=== PATIENT | female | born 1985 | race American Indian/Alaskan Native ===

== ENCOUNTER 2021-05-19 12:09 | Emergency (ER) | payer OTHER ==
[2021-05-19] MEDS ORDERED: cloNIDine 0.1 MG TAB PO ONE (12:38)
--- NOTE | 2021-05-19 12:44 | Emergency Department Report ---
ED Chest Pain HPI - General Chief Complaint: Chest Pain Stated Complaint: CHEST PAIN HIGH BP Time Seen by Provider: 05/19/21 12:29 Source: patient Mode of arrival: Ambulatory Limitations: No Limitations - History of Present Illness Initial Comments: 35-year-old -[place] female presents to the emergency department with complaint of a 2-day history of some midsternal chest discomfort that she describes as a tightness or pressure, as well as some recent labile but elevated blood pressure. Patient denies any past medical history of anything. She recently was seen at [facility] 4 days ago, but says that she was not actually seen by a provider due to the long wait. She did show me the blood work that was obtained and it showed some anemia with hemoglobin of 9.7, a normal-appearing CMP and the patient is not . She denies any tobacco use. She follows with [facility] for primary care. The patient's mother had an CA in her 40s. No recent travel or sick contacts at home. - Related Data Previous Rx's Medication Instructions Recorded Last Taken Type amLODIPine 5 mg PO DAILY #30 tab 05/19/21 Unknown Rx Allergies Allergy/AdvReac Type Severity Reaction Status Date / Time No Known Allergies Allergy Unverified 05/19/21 12:15 Heart Score - HEART Score History: Slightly suspicious EKG: Normal Age: < 45 Risk factors: 1-2 risk factors Troponin: < normal limit HEART Score: 1 - EKG Read Time Time EKG Completed: 12:23 EKG Read Time: 12:25 - Critical Actions Critical Actions: 0-3 pts:0.9-1.7%risk of adverse cardiac event.Candidate for discharge ED Review of Systems ROS: Stated complaint: CHEST PAIN HIGH BP Other details as noted in HPI Comment: All other systems reviewed and negative Constitutional: denies: chills, fever Eyes: denies: eye pain, vision change ENT: denies: ear pain, throat pain Respiratory: denies: cough, shortness of breath Cardiovascular: chest pain. denies: palpitations Gastrointestinal: denies: abdominal pain, vomiting Genitourinary: denies: dysuria, discharge Musculoskeletal: denies: back pain, joint swelling Skin: denies: rash, lesions Neurological: denies: headache, weakness ED Past Medical Hx - Past Medical History Previous Medical History?: No - Surgical History Past Surgical History?: Yes Additional Surgical History: , TL AND REVERSAL - Medications Home Medications: Home Medications Medication Instructions Recorded Confirmed Last Taken Type amLODIPine 5 mg PO DAILY #30 tab 05/19/21 Unknown Rx ED Physical Exam - General Limitations: No Limitations - Other Other exam information: GENERAL: The patient is well-developed well-nourished. HENT: Normocephalic. Atraumatic. Patient has moist mucous membranes. EYES: Extraocular motions are intact. NECK: Supple. Trachea is midline. CHEST/LUNGS: Clear to auscultation. There is no respiratory distress noted. HEART/CARDIOVASCULAR: Regular. There is no tachycardia. There is no murmur. ABDOMEN: Abdomen is soft, nontender. Patient has normal bowel sounds. SKIN: Skin is warm and dry. NEURO: The patient is awake, alert, and oriented. The patient is cooperative. The patient has no focal neurologic deficits. Normal speech. MUSCULOSKELETAL: There is no tenderness or deformity. There is no limitation range of motion. ED Course Vital Signs 05/19/21 05/19/21 12:17 14:39 Temperature 97.5 F L Pulse Rate 67 Respiratory 18 Rate Blood Pressure 159/105 Blood Pressure 134/92 [Left] O2 Sat by Pulse 99 Oximetry DIANNE score - Dianne Score Age > 65: (0) No Aspirin use within the Past 7 Days: (0) No 3 or more CAD Risk Factors: (0) No 2 or more Angina events in past 24 hrs: (1) Yes Known CAD with more than 50% Stenosis: (0) No Elevated Cardiac Markers: (0) No ST Deviation Greater than 0.5mm: (0) No DIANNE Score: 1 ED Medical Decision Making - Lab Data Result diagrams: 05/19/21 12:53 05/19/21 12:53 Lab Results 05/19/21 05/19/21 Range/Units 12:53 12:53 WBC 5.8 (4.5-11.0) K/mm3 RBC 3.66 (3.65-5.03) M/mm3 Hgb 10.2 (10.1-14.3) gm/dl Hct 30.3 (30.3-42.9) % MCV 83 (79-97) fl MCH 28 (28-32) pg MCHC 34 (30-34) % RDW 14.0 (13.2-15.2) % Plt Count 388 (140-440) K/mm3 Sodium 140 (137-145) mmol/L Potassium 3.8 (3.6-5.0) mmol/L Chloride 103.2 (98-107) mmol/L Carbon Dioxide 29 (22-30) mmol/L Anion Gap 12 mmol/L BUN 10 (7-17) mg/dL Creatinine 0.5 L (0.6-1.2) mg/dL Estimated GFR > 60 ml/min BUN/Creatinine Ratio 20 % Glucose 101 H (65-100) mg/dL Calcium 9.3 (8.4-10.2) mg/dL Troponin T < 0.010 (0.00-0.029) ng/mL - EKG Data -: EKG Interpreted by Me EKG shows normal: sinus rhythm, axis, intervals, QRS complexes, ST-T waves Rate: normal - EKG Data When compared to previous EKG there are: previous EKG unavailable Interpretation: normal EKG - Radiology Data Radiology results: image reviewed interpreted by me: Chest x-ray does not show any acute process. There are no pleural effusions, obvious pneumonia and there is no pneumothorax. No widened mediastinum. - Medical Decision Making This patient presents to the emergency department with a complaint of some midsternal chest discomfort, and the complaint of elevated blood pressure without the previous diagnosis of hypertension. EKG does not have any morphology consistent with ST elevation myocardial infarction or any arrhythmia. Chest x-ray does not show any pneumonia, pleural effusions, pneumothorax, widened mediastinum, or any other acute process. Labs have been mostly remarkable including CBC, metabolic panel and a negative troponin. Patient was given a dose of Catapres. Upon reevaluation the patient's blood pressure has come down to a more reasonable level. She also says that her chest pain has currently resolved. She is low on the heart and DIANNE score. She is low on the Wells score criteria and negative on the pulmonary embolism rule out criteria. For all these reasons patient appears safe for discharge home at this time. Her contact information has been sent over to the [facility], and someone from their office should be contacting her shortly for close outpatient follow-up as part of our hospitals low risk chest pain protocol. She has been started on Norvasc/amlodipine. We discussed staying away from f oods that are high in salt and caffeinated products, and keeping a blood pressure log. She will return to the emergency department with any worsening of her symptoms or with any acute distress. Critical Care Time: No Critical care attestation.: If time is entered above; I have spent that time in minutes in the direct care of this critically ill patient, excluding procedure time. ED Disposition Clinical Impression: Hypertension Qualifiers: Hypertension type: primary hypertension Qualified Code(s): I10 - Essential (primary) hypertension Chest pain Qualifiers: Chest pain type: unspecified Qualified Code(s): R07.9 - Chest pain, unspecified Disposition: HOME / SELF CARE / HOMELESS Is pt being admited?: No Condition: Stable Instructions: Nonspecific Chest Pain, Adult, Hypertension, Adult, Hypertension (ED) Additional Instructions: Please follow-up with your primary care physician in the next few days. Try to stay away from foods that are high in salt and caffeinated products. Keep a blood pressure log. I am starting you on a blood pressure medication called amlodipine/Norvasc. This medication is taken once per day, usually in the morning. I have sent your contact information over to the [facility], and someone from their office should be contacting you shortly. Just in case, I am giving you a referral for one of their hand blocker, Dr. Hennessy. Return to the emergency department with any worsening of your symptoms, new or concerning symptoms not addressed during this current emergency department visi t, or with any acute distress. Prescriptions: amLODIPine 5 mg PO DAILY #30 tab [facility]Other[facility] - 2-3 Days OZ HENNESSY MD [Staff Physician] - 2-3 Days Time of Disposition: 14:47
--- NOTE | 2021-05-19 13:14 | XRay Report ---
CHEST 2 VIEWS INDICATION / CLINICAL INFORMATION: Chest pain. COMPARISON: None available. FINDINGS: SUPPORT DEVICES: None. HEART / MEDIASTINUM: No significant abnormality. LUNGS / PLEURA: No significant pulmonary or pleural abnormality. No pneumothorax. ADDITIONAL FINDINGS: No significant additional findings. IMPRESSION: 1. No acute findings. Signer Name: Lawrence Abel MD Signed: 05/19/2021 1:09 PM Workstation Name: [id number]
[2021-05-19 13:42] LABS: Blood Urea Nitrogen 10 mg/dL (7-17); Calcium 9.3 mg/dL (8.4-10.2); Hemolysis Index 2
[2021-05-19 13:46] LABS: Hematocrit 30.3 % (30.3-42.9); Hemoglobin 10.2 gm/dl (10.1-14.3); Mean Corpuscular HGB Conc 34 % (30-34); Mean Corpuscular Volume 83 fl (79-97); Platelet Count 388 K/mm3 (140-440); Red Blood Count 3.66 M/mm3 (3.65-5.03)
[2021-05-19 14:15] LABS: BUN/Creatinine Ratio 20
[2021-05-19 15:24] VITALS: BP 131/83
[2021-05-19 17:40] LABS: Total Cells Counted 100
[2021-05-19 17:41] LABS: Band Neutrophils # (Manual) 0.1 K/mm3; Platelet Estimate Consistent w Auto
--- NOTE | 2021-05-20 09:10 | Electrocardiograph Report ---
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
== END 2021-05-19 15:24 | disposition home or self-care (01) ==
LOC: ED 12:09
DX: I10 Essential (primary) hypertension (principal); R07.9 Chest pain, unspecified
CPT/HCPCS: 36415; 71046; 80048; 84484; 85007; 85025; 93005; 99284